=== PATIENT | female | born 1990 | race African-American/Black ===

== ENCOUNTER 2020-07-12 13:24 | Emergency (ER) | payer OTHER ==
[~2020-07-12] VITALS: Ht 162.6 cm; Wt 81.6 kg
[2020-07-12 13:40] VITALS: BP 118/72; Ht 162.6 cm; Wt 81.6 kg
== END 2020-07-12 15:45 | disposition home or self-care (01) ==
LOC: ED 13:24
DX: S64.31XA Injury of digital nerve of right thumb, initial encounter (principal); W26.0XXA Contact with knife, initial encounter; Y93.89 Activity, other specified; Y92.89 Other specified places as the place of occurrence of the external cause; Y99.8 Other external cause status